=== PATIENT | male | born 1975 | race Two or more races ===

== ENCOUNTER 2020-03-14 02:40 | Emergency (ER) | payer SELFPAY ==
[~2020-03-14] VITALS: Ht 172.7 cm; Wt 77.1 kg
[2020-03-14 03:42] LABS: Basophils # (auto) 0.1 10 ^3/uL (0-0.2); Basophils % (auto) 0.7 % (0.0-2.0); Eosinophils # (auto) 0 10 ^3/uL (0-0.8); Eosinophils % (auto) 0.3 % (0.0-7.0); Hematocrit 42.8 % (41.0-53.0); Hemoglobin 14.9 g/dL (13.5-17.5); Lymphocytes # (auto) 0.7 10 ^3/uL (0.4-5.4); Lymphocytes % (auto) 8.1 % (10.0-50.0); Mean Corpuscular Hemoglobin 28.9 pg (28.0-32.0); Mean Corpuscular Hgb Conc. 34.8 g/dL (32.0-36.0); Mean Corpuscular Volume 82.9 fL (80.0-100.0); Monocytes # (auto) 0.5 10 ^3/uL (0-1.3); Monocytes % (auto) 5.8 % (0.0-12.0); Neutrophils # (auto) 7.9 10 ^3/uL (1.6-8.6); Neutrophils % (auto) 85.1 % (37.0-80.0); Nucleated Red Blood Cells % 0.2 %; Platelet Count (auto) 283 10^3/uL (140-450); Red Blood Cells 5.16 10^6/uL (4.5-5.90); Red Cell Distribution Width 13.8 % (11.8-14.3); White Blood Cell 9.3 10^3/uL (4.4-10.8)
[2020-03-14 03:58] LABS: Anion Gap 8 (5-15); Blood Urea Nitrogen 13 mg/dL (7-18); Calcium 8.4 mg/dL (8.5-10.1); Carbon Dioxide 26 mmol/L (21-32); Chloride 100 mmol/L (98-107); Glucose 119 mg/dL (74-106); Sodium 134 mmol/L (136-145)
[2020-03-14 04:05] LABS: Alanine Aminotransferase 67 U/L (16-61); Alkaline Phosphatase 64 U/L (45-117); Aspartate Aminotransferase 54 U/L (15-37); BUN/Creatinine Ratio 11.6; Bilirubin, Total 0.6 mg/dL (0.2-1.0); GFR African American 91 mL/min; GFR Non-African American 75 mL/min; Total Protein 7.9 g/dL (6.4-8.2)
[2020-03-14 04:26] LABS: INR 1.06 (0.9-1.15); Partial Thromboplastin Time 29.2 sec (23.0-31.2)
[2020-03-14 05:44] VITALS: BP 107/63
[2020-03-14] MEDS ORDERED: methylPREDNISolone SOD SUCC 125 MG/2 ML VL IV ONE (06:00)
[2020-03-14] MEDS ORDERED: ACETAMINOPHEN 325 MG TAB PO ONE (06:45)
== END 2020-03-14 07:00 | disposition home or self-care (01) ==
LOC: EDBD 02:40 → ER 02:55
DX: R06.02 Shortness of breath (principal); J06.9 Acute upper respiratory infection, unspecified; Z20.828 Contact with and (suspected) exposure to other viral communicable diseases
CPT/HCPCS: 36415; 71045; 80053; 83880; 84484; 85025; 85379; 85610; 85730; 87040; 87426; 93005; 96374; 99285; J2930